=== PATIENT | female | born 1990 | race Caucasian/White ===

== ENCOUNTER 2019-04-21 16:02 | Inpatient (IN) ==
[2019-04-21] MEDS ORDERED: BUTORPHANOL TARTRATE 1 MG/ML VIAL IV PRN (17:11)
[2019-04-21] MEDS: LACTATED RINGER'S 1,000 ML IV SCH ×2 (17:20→19:45)
[2019-04-21] MEDS ORDERED: OXYTOCIN 30 UNITS/500 ML BAG IV PRN ×2 (19:14→19:16)
[2019-04-21] MEDS ORDERED: LACTATED RINGER'S 1,000 ML IV PRN (19:14)
[2019-04-21] MEDS ORDERED: CALCIUM CARBONATE 500 MG CHEWABLE TAB PO PRN (19:18)
[2019-04-21] MEDS ORDERED: CALCIUM CARBONATE 500 MG CHEWABLE TAB ONE (19:21)
[2019-04-21] MEDS ORDERED: ePHEDrine sulfate 50 MG/ML AMP ONE (19:22)
[2019-04-21] MEDS ORDERED: BUPIVACAINE 0.25% 30 ML VIAL ONE (19:22)
[2019-04-21] MEDS ORDERED: fentaNYL citrate 100 MCG/2 ML VIAL ONE (19:22)
[2019-04-21] MEDS ORDERED: fentaNYL 2MCG/ML ROPIV 1.25MG/ML 100 ML BAG EPI ONE (19:22)
--- NOTE | 2019-04-21 19:27 | History & Physical Report ---
Date of Service April 21, 2019 Assessment & Plan (1) Normal labor: Patient is intolerant of her contractions so we will obtain epidural analgesia and then begin pitocin augmentation The Patient & her are agreeable to this plan. History of Present Illness Primary Care Provider: NO PCP Patient is a 29 yo white female EDC 04/28/19 who presents with regular contractions for the last 12 hours. The contractions are about 5-7 minutes apart and very painful to the patient. she has made slow cervical change from 1cm/60%/-3 this AM at 0700 to 2-3cm/90/-1 now. no SPROM but she has had some brown discharge since this morning. Patient is intolerant of the contractions because they are localized to her lower back. IV Stadol has helped somewhat. GBS-negative. Blood type A positive. Patient is heterozygote for Factor V Leiden factor. Allergies Allergy/AdvReac Type Severity Reaction Status Date / Time amoxicillin Allergy Rash Verified 04/21/19 04:23 Home Medications Home Medications Medication Instructions Recorded Confirmed Type prenat.vits,nabeel,[id number] 1 tab PO DAILY 10/25/18 04/21/19 History Patient History Social History (Updated 10/29/18 @ 08:26 by Ninfa Mullins) Preferred Language: Ukrainian Communication Ability: Effective Systems Manager Required: No Beliefs That Will Affect Care: None marital status: Current Living Situation: Spouse Other Information That Helps Us Care for You: No Feels Safe at Home: Yes Smoking Status: Never smoker Hx Alcohol Use: No Hx Substance Use: No Review of Systems All systems reviewed & are unremarkable except as noted in HPI & below Physical Exam Constitutional: WD/WN, vitals as above Respiratory: normal respiratory effort, lungs clear to auscultation Cardiovascular: RRR, no murmur, no edema Gastrointestinal (Abdomen): normal bowel sounds, soft, nontender, no hepa tosplenomegaly Psychiatric: A+Ox3, euthymic affect Genitourinary: Manual OB Exam: + cervical dilation 2 cm and 3 cm, + cervical effacement 90% and + station -1 OB Exam Monitor Tracing: + external FHT monitor used, + external uterine monitor used, + category I and + normal FHT variability Results & Data Vital Signs (Past 12 Hours) Vital Signs Temp Pulse Resp BP 04/21/19 19:08 110 H 141/96 H 04/21/19 17:25 75 133/76 04/21/19 17:20 88 134/81 04/21/19 16:18 98.2 F 83 24 133/83 04/21/19 16:13 83 133/83 Code Status & VTE Plan VTE Prophylaxis Plan VTE Prophylaxis will be ordered: No Coding Level of Care Code None Diagnoses Normal labor O80; Z37.9
[2019-04-21 19:35] LABS: Hematocrit (blood only) 30.9 % (37-47); Hemoglobin 10.7 g/dL (12.0-16.0); Mean Corpuscular Hemoglobin 31.2 pg (25-34); Mean Corpuscular Volume 90.1 fL (80-100); Mean Platelet Volume 10.2 fL (7.4-10.4); Platelet Count 215 K/uL (130-400); RDW Coefficient of Variation 12.9 % (11.5-14.5); RDW Standard Deviation 41.6 fL (36.4-46.3); Red Blood Count 3.43 M/uL (4.2-5.4); White Blood Count 13.46 K/uL (4.8-10.8)
[2019-04-21 19:40] LABS: Mean Corpuscular Hgb Conc 34.6 g/dL (32-36)
[2019-04-21] MEDS ORDERED: NALBUPHINE HCL INJ 10 MG/ML AMP IV PRN (19:56)
[2019-04-21] MEDS ORDERED: NALOXONE HCL 0.4 MG/1 ML VIAL/CARP IV PRN (19:56)
[2019-04-21] MEDS ORDERED: ePHEDrine sulfate 50 MG/ML AMP IV PRN (19:56)
[2019-04-21] MEDS ORDERED: NALOXONE HCL 1 MG in SODIUM CHLORIDE 0.9% 1000ML 1,000 ML IV PRN (19:56)
[2019-04-21] MEDS ORDERED: ONDANSETRON INJ 2 MG/ML 2 ML VIAL IV PRN (19:56)
[2019-04-21] MEDS ORDERED: fentaNYL 2MCG/ML ROPIV 1.25MG/ML 100 ML BAG EPI PRN (19:56)
[2019-04-21] MEDS ORDERED: DiphenhydrAMINE HCL 50 MG/ML VIAL IV PRN (19:56)
--- NOTE | 2019-04-21 19:56 | Anesthesiology Consultation ---
Date of Service April 21, 2019 @39 wks Assessment & Plan (1) Encounter for pre-operative examination: Chart Review Chart Review: Acceptable Risk for Surgery and Patient NOT seen in Pre Admission Testing Consults Requested none ASA ASA2 Proposed Anesthesia Anesthesia Type: Labor Epidural Risk / Benefits Reviewed With: PT / POA / Parent / Guardian, Accepts Plan and Informed Consent Obtained History Height/Weight Height: 4 ft 10 in Weight: 65.317 kg Allergies Allergy/AdvReac Type Severity Reaction Status Date / Time amoxicillin Allergy Rash Verified 04/21/19 04:23 Medications Home Medications Medication Instructions Recorded Confirmed Last Taken prenat.vits,nabeel,err-[id number] 1 tab PO DAILY 10/25/18 04/21/19 04/20/19 Active Medications Generic Name Dose Route Start Last Admin Trade Name Freq PRN Reason Stop Dose Admin Butorphanol Tartrate 1 mg 04/21/19 17:11 04/21/19 17:20 Stadol IV 05/21/19 17:10 1 mg ONCE PRN Administration Pain Calcium Carbonate 500 mg 04/21/19 19:18 04/21/19 19:24 Tums PO 05/21/19 19:17 500 mg Q6 PRN Administration Indigestion Lactated Ringer's 1,000 mls @ 125 mls/hr 04/21/19 17:15 04/21/19 19:45 Lr IV 05/21/19 17:14 125 mls/hr .Q8H JANI Administration Past Medical History Medical History Bacterial vaginosis Yeast infection Exercise / Class Metabolic Activity II 4-5 Yardwork/Stairs/Walk up hill Past Family History Family History Mother Factor V Leiden mutation Sister Factor V Leiden mutation Grandmother (Maternal) Breast cancer Grandfather (Paternal) Pancreatic cancer Past Surgical History Surgical History S/P wisdom tooth extraction Past Anesthesia History No Hx of Anesthesia Complications and No Family Hx of Anesthesia Complications History of PONV No Hx of PONV and No Hx of Motion Sickness Social History Smoking Status: Never smoker Hx Alcohol Use: No Hx Substance Use: No substance use type: does not use Physical Exam Vital Signs Last Vital Signs Temp 36.8 C 04/21/19 16:18 Pulse 110 H 04/21/19 19:08 Resp 24 04/21/19 16:18 BP 141/96 H 04/21/19 19:08 ENMT Mouth: no dentition abnormality Thyromental Distance: > or= 3.5 Finger Breadths Mallampati Class: II Neck normal visual inspection Respiratory normal respiratory effort Auscultation: lungs clear to auscultation bilaterally Cardiovascular Rate/Rhythm: regular rate and regular rhythm Psychiatric Orientation: alert Testing Laboratory Results 04/21/19 19:22
[2019-04-22] MEDS ORDERED: bisacodyL 10 MG SUPP PR PRN (03:29)
[2019-04-22] MEDS ORDERED: DIPHTHERIA/TETANUS/PERTUSSIS 0.5 ML SYR/VIAL IM ONE (03:29)
[2019-04-22] MEDS ORDERED: OXYCODONE/ACETAMINOPHEN 5mg/325mg TAB PO PRN (03:29)
[2019-04-22] MEDS ORDERED: SUPERCREAM 0.870% 15 GM JAR EXT PRN (03:29)
[2019-04-22] MEDS ORDERED: OXYTOCIN 30 UNITS/500 ML BAG IV PRN (03:29)
[2019-04-22] MEDS ORDERED: HYDROCORTISONE ACETATE 25 MG SUPP PR PRN (03:29)
[2019-04-22] MEDS ORDERED: ACETAMINOPHEN 325 MG TAB PO PRN (03:29)
[2019-04-22] MEDS ORDERED: BENZOCAINE 20% AER SPR 82.5 GM CAN EXT PRN (03:29)
[2019-04-22] MEDS: IBUPROFEN 600 MG TAB PO PRN ×3 (05:19→21:17)
--- NOTE | 2019-04-22 06:52 | Anesthesia Procedure Note ---
Date of Service April 22, 2019 Anesthesia Post Epidural Note Vital Signs Vital Signs: Temp Pulse Resp BP Pulse Ox 36.3 C L 97 H 17 122/78 98 04/22/19 05:50 04/22/19 05:50 04/22/19 05:50 04/22/19 05:50 04/22/19 05:50 Pain Intensity Bilateral Back: Pain Intensity: 5 Notes Mental Status: alert / awake / arousable and participated in evaluation Nausea / Vomiting: adequately controlled Pain: adequately controlled Airway Patency, RR, SpO2: stable & adequate BP & HR: stable & adequate Hydration State: stable & adequate Neuraxial Anesthesia: was administered and sensory block is resolving Anesthetic Complications: no major complications apparent and Pt Satisfied with anesthetic care Epidural: Removed without complications and With tip intact Notes: Epidural site clean, dry and intact. No signs of edema, erythema or bruising at insertion site. Pt instructed to request anesthesia if she has residual lower extremity numbness or if she develops lower extremity pain or weakness, back pain or headache.
--- NOTE | 2019-04-22 07:13 | Delivery Summary ---
DATE OF OPERATION: 04/22/2019 The patient is a 29-year-old white female, EDC of 04/28/2019 who presented with regular contractions for the last 12 hours. She has made slow progress from 1 cm, dilated to 2-3 cm dilation. She is not tolerating contractions well at all despite IV Stadol, it was decided at this point to augment her labor after epidural analgesia. The epidural worked well. She progressed to 7 cm dilated. Membranes were ruptured for blood-tinged fluid. She pushed effectively over intact perineum for delivery of a viable female . The was placed on the mother's abdomen. There was vigorous crying and the was moving all 4 limbs. The cord was clamped and cut after 1 minute. Placenta was expressed intact with a 3-vessel cord. First-degree perineal laceration was repaired with 3-0 chromic in the usual fashion. There was some swelling in the left labia minora, which reduced with direct pressure. There appears to be no increasing swelling of the left labia minora that would be consistent with a hematoma at this time. Estimated blood loss was 200 mL. Mother and are doing well after delivery. I attest to the content of the Intraoperative Record and any orders documented therein. Any exceptions are noted below. MTDD
--- NOTE | 2019-04-22 08:00 | Obstetrical Progress Note ---
Date of Service April 22, 2019 Assessment & Plan (1) Encounter for care and examination after delivery: doing well post delivery with swollen left labia minora but appears to be stable at this time continue ice and the sitz baths to follow Subjective Ambulation: ambulating normally Voiding: no voiding problems Passing Gas:: Yes Diet Tolerance:: regular diet Lochia:: Moderate Feeding Type:: breast feeding perineum feeling a little sore only Review of Systems All systems reviewed & are unremarkable except as noted in HPI & below Physical Exam Constitutional WD/WN, vitals as above Psychiatric A+Ox3, euthymic affect Genitourinary OB Exam Abdomen: + fundal height (1 above U) Fundus: + relation to umbilicus (1 above U) left labia edematous but not ecchymotic and not tense. Results & Data Vital Signs (Past 12 Hours) Vital Signs Temp Pulse Pulse Pulse Resp BP BP 04/22/19 07:54 97.9 F 79 18 127/83 04/22/19 05:50 97.3 F L 97 H 17 122/78 04/22/19 05:21 101 H 127/84 04/22/19 05:20 101 H 20 127/84 04/22/19 05:06 91 H 130/76 04/22/19 04:52 86 128/79 04/22/19 04:50 101 H 18 127/84 04/22/19 04:36 83 125/71 04/22/19 04:22 88 114/67 04/22/19 04:20 88 20 114/67 04/22/19 04:06 94 H 140/61 04/22/19 04:05 96 H 20 142/66 H 04/22/19 03:52 96 H 142/66 H 04/22/19 03:50 96 H 20 142/66 H 04/22/19 03:41 122 H 04/22/19 03:37 97 H 127/69 04/22/19 03:36 96 H 04/22/19 03:31 103 H 04/22/19 03:26 104 H 04/22/19 03:22 104 H 123/67 04/22/19 03:21 110 H 04/22/19 03:20 122 H 20 04/22/19 03:16 107 H 145/75 H 04/22/19 03:11 114 H 04/22/19 03:06 123 H 04/22/19 03:01 150 H 04/22/19 03:00 18 04/22/19 02:56 145 H 04/22/19 02:51 135 H 04/22/19 02:46 155 H 04/22/19 02:41 132 H 04/22/19 02:35 95 H 04/22/19 02:32 83 115/56 L 04/22/19 02:31 98.4 F 04/22/19 02:30 84 20 04/22/19 02:25 89 04/22/19 02:20 91 H 04/22/19 02:16 91 H 115/56 L 04/22/19 02:15 88 04/22/19 02:10 84 04/22/19 02:05 86 04/22/19 02:01 70 124/60 04/22/19 02:00 91 H 04/22/19 01:59 20 04/22/19 01:55 83 04/22/19 01:50 89 04/22/19 01:46 75 120/58 L 04/22/19 01:45 80 04/22/19 01:40 86 04/22/19 01:35 92 H 04/22/19 01:32 85 121/59 L 04/22/19 01:30 80 20 04/22/19 01:25 94 H 04/22/19 01:20 87 04/22/19 01:16 86 117/58 L 04/22/19 01:15 87 04/22/19 01:10 91 H 04/22/19 01:05 90 04/22/19 01:01 86 116/58 L 04/22/19 01:00 88 20 04/22/19 00:59 98.4 F 04/22/19 00:55 100 H 04/22/19 00:50 109 H 04/22/19 00:46 97 H 129/79 04/22/19 00:45 96 H 04/22/19 00:40 99 H 04/22/19 00:35 111 H 04/22/19 00:31 92 H 132/75 04/22/19 00:30 84 20 04/22/19 00:25 86 04/22/19 00:20 89 04/22/19 00:16 85 127/70 04/22/19 00:15 84 04/22/19 00:10 96 H 04/22/19 00:05 98 H 04/22/19 00:01 96 H 132/76 04/22/19 00:00 106 H 04/21/19 23:59 20 04/21/19 23:55 107 H 04/21/19 23:50 98.4 F 88 04/21/19 23:46 101 H 137/73 04/21/19 23:45 111 H 04/21/19 23:40 103 H 04/21/19 23:35 101 H 04/21/19 23:32 103 H 130/75 04/21/19 23:30 111 H 20 04/21/19 23:25 98 H 04/21/19 23:20 110 H 04/21/19 23:16 112 H 126/83 04/21/19 23:15 108 H 04/21/19 23:10 107 H 04/21/19 23:05 87 04/21/19 23:00 75 20 04/21/19 22:55 82 04/21/19 22:50 85 04/21/19 22:46 90 130/77 04/21/19 22:45 93 H 04/21/19 22:40 85 04/21/19 22:35 98 H 04/21/19 22:32 103 H 130/81 04/21/19 22:30 100 H 18 04/21/19 22:25 81 04/21/19 22:20 82 04/21/19 22:17 82 131/72 04/21/19 22:15 90 04/21/19 22:10 77 04/21/19 22:05 79 04/21/19 22:01 75 124/65 04/21/19 22:00 76 20 04/21/19 21:55 84 04/21/19 21:50 73 04/21/19 21:46 75 123/65 04/21/19 21:45 76 04/21/19 21:40 80 04/21/19 21:35 80 04/21/19 21:32 82 123/65 04/21/19 21:30 101 H 20 04/21/19 21:25 84 04/21/19 21:20 95 H 04/21/19 21:16 81 128/81 04/21/19 21:15 93 H 01/23/20 21:10 84 04/21/19 21:05 97 H 04/21/19 21:01 88 120/71 04/21/19 21:00 106 H 20 04/21/19 20:55 93 H 04/21/19 20:50 81 04/21/19 20:46 106 H 121/75 04/21/19 20:45 106 H 04/21/19 20:40 102 H 04/21/19 20:35 94 H 04/21/19 20:31 96 H 123/67 04/21/19 20:30 98.4 F 100 H 20 118/68 04/21/19 20:26 86 126/71 04/21/19 20:25 88 20 04/21/19 20:21 100 H 120/60 04/21/19 20:20 102 H 20 04/21/19 20:15 92 H 20 04/21/19 20:14 103 H 131/65 04/21/19 20:12 110 H 129/71 04/21/19 20:10 94 H 20 129/62 04/21/19 20:09 114 H 149/64 H 04/21/19 20:05 113 H 20 04/21/19 20:00 121 H Pulse Ox 04/22/19 07:54 98 04/22/19 05:50 98 04/22/19 05:21 04/22/19 05:20 04/22/19 05:06 04/22/19 04:52 04/22/19 04:50 04/22/19 04:36 04/22/19 04:22 04/22/19 04:20 04/22/19 04:06 04/22/19 04:05 04/22/19 03:52 04/22/19 03:50 04/22/19 03:41 96 04/22/19 03:37 04/22/19 03:36 96 04/22/19 03:31 97 04/22/19 03:26 96 04/22/19 03:22 04/22/19 03:21 96 04/22/19 03:20 96 04/22/19 03:16 97 04/22/19 03:11 96 04/22/19 03:06 96 04/22/19 03:01 97 04/22/19 03:00 04/22/19 02:56 98 04/22/19 02:51 98 04/22/19 02:46 96 04/22/19 02:41 94 04/22/19 02:35 95 04/22/19 02:32 04/22/19 02:31 04/22/19 02:30 96 04/22/19 02:25 95 04/22/19 02:20 95 04/22/19 02:16 04/22/19 02:15 95 04/22/19 02:10 95 04/22/19 02:05 95 04/22/19 02:01 04/22/19 02:00 95 04/22/19 01:59 04/22/19 01:55 95 04/22/19 01:50 95 04/22/19 01:46 04/22/19 01:45 95 04/22/19 01:40 95 04/22/19 01:35 95 04/22/19 01:32 04/22/19 01:30 95 04/22/19 01:25 97 04/22/19 01:20 95 04/22/19 01:16 04/22/19 01:15 95 04/22/19 01:10 95 04/22/19 01:05 95 04/22/19 01:01 04/22/19 01:00 95 04/22/19 00:59 04/22/19 00:55 95 04/22/19 00:50 97 04/22/19 00:46 04/22/19 00:45 96 04/22/19 00:40 95 04/22/19 00:35 96 04/22/19 00:31 04/22/19 00:30 96 04/22/19 00:25 95 04/22/19 00:20 96 04/22/19 00:16 04/22/19 00:15 95 04/22/19 00:10 96 04/22/19 00:05 96 04/22/19 00:01 04/22/19 00:00 97 04/21/19 23:59 04/21/19 23:55 97 04/21/19 23:50 96 04/21/19 23:46 04/21/19 23:45 97 04/21/19 23:40 97 04/21/19 23:35 96 04/21/19 23:32 04/21/19 23:30 96 04/21/19 23:25 96 04/21/19 23:20 95 04/21/19 23:16 04/21/19 23:15 96 04/21/19 23:10 97 04/21/19 23:05 95 04/21/19 23:00 95 04/21/19 22:55 95 04/21/19 22:50 95 04/21/19 22:46 04/21/19 22:45 97 04/21/19 22:40 97 04/21/19 22:35 96 04/21/19 22:32 04/21/19 22:30 97 04/21/19 22:25 96 04/21/19 22:20 97 04/21/19 22:17 04/21/19 22:15 97 04/21/19 22:10 96 04/21/19 22:05 96 04/21/19 22:01 04/21/19 22:00 96 04/21/19 21:55 96 04/21/19 21:50 96 04/21/19 21:46 04/21/19 21:45 97 04/21/19 21:40 96 04/21/19 21:35 96 04/21/19 21:32 04/21/19 21:30 97 04/21/19 21:25 97 04/21/19 21:20 97 04/21/19 21:16 04/21/19 21:15 97 04/21/19 21:10 96 04/21/19 21:05 97 04/21/19 21:01 04/21/19 21:00 99 04/21/19 20:55 97 04/21/19 20:50 97 04/21/19 20:46 04/21/19 20:45 97 04/21/19 20:40 98 04/21/19 20:35 98 04/21/19 20:31 04/21/19 20:30 98 04/21/19 20:26 04/21/19 20:25 97 04/21/19 20:21 04/21/19 20:20 97 04/21/19 20:15 96 04/21/19 20:14 04/21/19 20:12 04/21/19 20:10 96 04/21/19 20:09 04/21/19 20:05 97 04/21/19 20:00 97
[2019-04-22] MEDS: PRENATAL VITAMIN 1 TAB PO SCH (08:27)
[2019-04-22] MEDS: DOCUSATE SODIUM 100 MG CAP PO SCH ×2 (08:27→20:17)
[2019-04-23] MEDS: IBUPROFEN 600 MG TAB PO PRN ×3 (02:57→16:07)
--- NOTE | 2019-04-23 07:05 | Obstetrical Progress Note ---
Date of Service <Merline Mitchelldiana - Last Filed: 04/23/19 07:04> April 23, 2019 Assessment & Plan <Merline Lyon - Last Filed: 04/23/19 07:04> (1) Encounter for care and examination after delivery: 29 yo F PPD #1 following vaginal delivery at 39.0weeks, doing well and without complaints this morning. - PPD #1. - Feels well, ambulating well, voiding well. - Will continue routine care. - Following d/c will have f/u in 6 weeks. - Recommended taking Motrin on a more scheduled basis q6h if cramping is bothering her rather than taking it when she cannot bear it anymore. Subjective <Merline Camron, DO - Last Filed: 04/23/19 07:04> Nano is a 29 yo female ; PPD # 1 following vaginal delivery at 39.1weeks; doing well this AM; no abdominal cramping/pain; voiding well; tolerating meals overnight, able to ambulate some within the room. Is breast feeding and reports good latch but cramping in uterus with feeds. Alleviated with Motrin. Review of Systems Constitutional: denies fever, chills, sweats, headache Respiratory: denies SOB, difficulty breathing Cardiac: denies CP, chest palpitations, chest pressure Breast: denies breast pain : denies dysuria Physical Exam <Merline Lyon - Last Filed: 04/23/19 07:04> General: patient is alert and oriented, in NAD Cardiac: +S1/S2, no murmurs rubs or gallops Respiratory: lungs CTA b/l, anteriorly and posteriorly, no wheezes rales or rhonchi, no increased work of breathing, symmetric chest rise, no respiratory distress Abdomen: soft, NT, +bowel sounds Uterus: uterine fundus firm, palpable below the level of the umbilicus Lower Extremities: no LE edema or swelling, no deep calf pain, Tiffany's sign negative b/l Results & Data <Merline LyonDO - Last Filed: 04/23/19 07:04> Vital Signs (Past 12 Hours) Vital Signs Temp Pulse Resp BP 04/23/19 03:20 36.9 C 80 18 118/78 04/22/19 23:40 37 C 88 18 122/80 04/22/19 20:00 36.9 C 90 14 128/80 Medications Administered Current Medications Acetaminophen (Tylenol) 650 mg PO Q6H PRN PRN Reason: Pain/JONES/Fever Stop: 05/22/19 03:28 Last Admin: 04/22/19 08:27 Dose: 650 mg Documented by: Benzocaine (Dermoplast Pain Relieving [place]) 1 appln EXT PRN PRN PRN Reason: Perineal Discomfort Stop: 05/22/19 03:28 Last Admin: 04/22/19 05:19 Dose: 82.5 appln Documented by: Bisacodyl (Dulcolax) 5 mg PO 2000 [facility] Stop: 04/23/19 20:01 Bisacodyl (Dulcolax) 10 mg [place] DAILY PRN PRN Reason: No BM on 2nd post- day Stop: 05/22/19 03:28 Calcium Carbonate (Tums) 500 mg PO Q6 PRN PRN Reason: Indigestion Stop: 05/21/19 19:17 Last Admin: 04/21/19 19:24 Dose: 500 mg Documented by: Cocaine HCl (Supercream 0.870%) 1 gm EXT BID PRN PRN Reason: Hemorrhoidal Inflammation Stop: 05/06/19 03:28 Docusate Sodium (Colace) 100 mg PO DAILY@08, [facility] Stop: 05/22/19 07:59 Last Admin: 04/22/19 20:17 Dose: 100 mg Documented by: Hydrocortisone (Anusol Hc) 25 mg VA BID PRN PRN Reason: Hemorrhoidal Inflammation Stop: 05/22/19 03:28 Lactated Ringer's (Lr) 1,000 mls @ 125 mls/hr IV .Q8H PRN; Protocol PRN Reason: L&D Protocol Stop: 04/23/19 19:13 Oxytocin (Pitocin) 30 units in 500 mls @ 333 mls/hr IV .Q1H31M PRN; Protocol PRN Reason: Labor Induction/Augmentation Stop: 04/23/19 19:15 Last Titration: 04/22/19 03:10 Dose: 19.98 units/hr, 333 mls/hr Documented by: Oxytocin (Pitocin) 30 units in 500 mls @ 333.333 mls/hr IV .Q1H30M PRN; Protocol PRN Reason: Bleeding Control Stop: 05/22/19 03:28 Ibuprofen (Motrin) 600 mg PO Q4H PRN PRN Reason: Pain/JONES/Cramping/Fever Stop: 05/22/19 03:28 Last Admin: 04/23/19 02:57 Dose: 600 mg Documented by: Oxycodone/Acetaminophen (Percocet 5mg/325mg) 1 tab PO Q4H PRN PRN Reason: Pain not relieved by... Stop: 05/06/19 03:28 Prenat Multivit/Miller/Iron/Folic Ac ( Vitamin) 1 tab PO DAILY@08 JANI Stop: 05/22/19 07:59 Last Admin: 04/22/19 08:27 Dose: 1 tab Documented by: <Domonique Cam MD, FACOG - Last Filed: 04/23/19 07:25> Co-Signing Physician Notes Resident Physician Supervision Note: I was present with Dr. Lyon during the history and exam. I discussed the case with the resident and agree with the findings and plan as documented in the note. Any exceptions or clarifications are listed here: doing well, routine care. rh pos. rubella immune. Documented By: Domonique Cam MD, FACOG Resident Activity Tracking <Merline Lyon DO - Last Filed: 04/23/19 07:04> Resident Involvement: Resident Care Provided Care Provided: OB Delivery
[2019-04-23 07:14] LABS: Hematocrit (blood only) 27.2 % (37-47); Hemoglobin 9.3 g/dL (12.0-16.0); Mean Corpuscular Hemoglobin 31.6 pg (25-34); Mean Corpuscular Hgb Conc 34.2 g/dL (32-36); Mean Corpuscular Volume 92.5 fL (80-100); Mean Platelet Volume 10.2 fL (7.4-10.4); Platelet Count 170 K/uL (130-400); RDW Coefficient of Variation 13.1 % (11.5-14.5); Red Blood Count 2.94 M/uL (4.2-5.4); White Blood Count 11.98 K/uL (4.8-10.8)
[2019-04-23] MEDS: PRENATAL VITAMIN 1 TAB PO SCH (11:21)
[2019-04-23] MEDS: DOCUSATE SODIUM 100 MG CAP PO SCH ×2 (11:21→21:06)
[2019-04-23] MEDS ORDERED: bisacodyL 5 MG TABEC PO SCH (20:00)
[2019-04-24] MEDS: IBUPROFEN 600 MG TAB PO PRN ×2 (03:02→08:26)
[2019-04-24 06:55] LABS: Hematocrit (blood only) 27.8 % (37-47); Hemoglobin 9.5 g/dL (12.0-16.0)
[2019-04-24] MEDS: PRENATAL VITAMIN 1 TAB PO SCH (08:26)
[2019-04-24] MEDS: DOCUSATE SODIUM 100 MG CAP PO SCH (08:26)
--- NOTE | 2019-04-24 08:31 | Obstetrical Progress Note ---
Date of Service April 24, 2019 Assessment & Plan (1) Encounter for care and examination after delivery: - doing well - desires d/c - instructions given - f/u in 6 weeks (2) Heterozygous factor V Leiden affecting , antepartum: - vaginal delivery - ambulating well - no indication for anti-coagulation at this time - signs and sx's of DVT reviewed Subjective Ambulation: ambulating normally Voiding: no voiding problems Diet Tolerance:: regular diet Feeding Type:: breast feeding Physical Exam Constitutional WD/WN, vitals as above Gastrointestinal (Abdomen) Fundus firm below umbilicus Musculoskeletal No deep calf tenderness Results & Data Vital Signs (Past 12 Hours) Vital Signs Temp Pulse Resp BP Pulse Ox 04/24/19 00:40 98.2 F 62 16 125/80 97
== END 2019-04-24 12:10 | disposition home or self-care (01) | DRG 807 ==
LOC: OPB 16:02 → 4S1 16:03 → 4S2 04-22 06:03